=== PATIENT | male | born 1965 | race Hispanic/Latino ===

== ENCOUNTER 2020-02-02 08:34 | Day surgery (SDC) | payer SELFPAY ==
[~2020-02-02] VITALS: Ht 170.2 cm; Wt 124.7 kg
[2020-02-02] VITALS (12 sets, daily range): BP systolic 78–129; BP diastolic 45–77
[~2020-02-02 08:34] MED LIST: ACET1TAB25 PO; ATEN50TA PO; DOCU-282 PO; OLME1TAB11 PO
[2020-02-02] MEDS ORDERED: ASPI-1443 PO (10:40)
[2020-02-02] MEDS ORDERED: LISI40TA4 PO (10:40)
[2020-02-02] MEDS ORDERED: HYDR25TA PO (10:40)
[2020-02-02] MEDS ORDERED: ATOR10TA69 PO (10:40)
[2020-02-02] MEDS ORDERED: METO-408 PO (10:40)
[2020-02-02] MEDS ORDERED: SODIUM CHLORIDE 0.9% 1000ML 1,000 ML IV ONE (10:42)
[2020-02-02] MEDS ORDERED: PROPOFOL 10 MG/ML 20ML VIAL IV ONE ×2 (11:59→12:29)
[2020-02-02] MEDS ORDERED: ZOSYN 3.375GM+NS 50ML 50 ML IV ONE (12:03)
[2020-02-02] MEDS ORDERED: AMOX-429 PO (13:50)
[2020-02-02 15:39] LABS: TOTAL BILIRUBIN, BODY FLUID 0.9 mg/dL
[2020-02-04 14:56] LABS: GLUCOSE,BODY FLUID 7 mg/dL (1-40)
[2020-02-04 15:12] LABS: APPEARANCE BODY FLUID TURBID (CLEAR); BODY FLUID WBC 79250 /cu. mm.; COLOR,BODY FLUID YELLOW (LT YELLOW); SPECIMENTYPE,BODY FLUID OTHER; TOTAL VOLUME,BODY FLUID 140 mL
[2020-02-04 15:13] LABS: BODY FLUID RBC 7500 /cu. mm.
[2020-02-04 15:31] LABS: BF EOSINOPHIL 2 %; BF LYMPHOCYTE 7 %
== END 2020-02-02 14:00 | disposition home or self-care (01) ==
LOC: ENDO 08:34 → DAH 08:34 → ENDO 14:00
PROVIDERS: ATTEND Internal Medicine
DX: K86.2 Cyst of pancreas (principal); Z20.828 Contact with and (suspected) exposure to other viral communicable diseases; K31.89 Other diseases of stomach and duodenum; G47.30 Sleep apnea, unspecified; I10 Essential (primary) hypertension; E78.5 Hyperlipidemia, unspecified; E66.01 Morbid (severe) obesity due to excess calories; Z86.711 Personal history of pulmonary embolism; Z79.82 Long term (current) use of aspirin; Z79.899 Other long term (current) drug therapy; Z98.890 Other specified postprocedural states; Z72.89 Other problems related to lifestyle; Z68.41 Body mass index [BMI] 40.0-44.9, adult
CPT/HCPCS: 36415 ×2; 43238; 82150; 82247; 82378; 82945; 83615; 84157; 84478; 87071; 87205; 89051; A4215 ×2; A4221; A4222; A4223; A4606; A4657 ×3; A4663; C9803; J2543; J2704 ×2; J7030; U0003